=== PATIENT | female | born 1995 | race Caucasian/White ===

== ENCOUNTER 2017-01-04 23:01 | Emergency (ER) | payer OTHER ==
--- NOTE | 2017-01-05 01:55 | ED NURSING NOTES ---
Clinical Report - Nurses [facility] [address] [place] [address] 01/04/2017 23:01 Patient: CHALINO CZAARES TRIAGE Triage time 23:08. Acuity: LEVEL 4. Chief Complaint: LEFT UPPER TOOTHACHE. 23:13. Alert. SEPSIS SCREEN: Sepsis Screen. Negative (no infection suspected/documented). --23:13 Tyler Kurtz R.N. 23:08 01/04/17. BP: 130/92. HR: 94. RR: 19. O2 saturation: 100% on room air. Temp: 97.9 F. Pain level now: 04/19. --23:13 Tyler Kurtz R.N. Weight: 54.4 kg stated. Height/Length: 70 inches Per Patient. BMI: 17.2. --23:12 Tyler Kurtz R.N. Medications None. --23:12 Tyler Kurtz R.N. Medication/allergy information source: the patient. --23:13 Tyler Kurtz R.N. Allergies No Known Drug Allergy. --23:12 Tyler Kurtz R.N. History Arrived by private vehicle. Historian: patient. Accompanied by friend. Onset. (On and off for 2 months - bad for the last 2 days). She has no dental appointment scheduled. 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 PAST MEDICAL HX: Immunizations: up-to-date. Last normal menstrual period now. SOCIAL HX: Current every day heavy tobacco smoker- less than 1 pack per day. No alcohol use or drug use. No infectious disease exposure. ABUSE ASSESSMENT: No report of abuse. FALL RISK ASSESSMENT: Fall risk assessment completed. No fall risk identified. NUTRITIONAL RISK ASSESSMENT: The nutritional risk assessment revealed no deficiencies. FUNCTIONAL ASSESSMENT: Functional assessment: no impairments noted. LEARNING NEEDS ASSESSMENT: The learning needs assessment revealed no barriers. SKIN INTEGRITY ASSESSMENT: Skin integrity risk assessment completed. No skin integrity risk identified. --23:13 Tyler Kurtz R.N. PROBLEMS: no known problems. ADDITIONAL SURGERIES: no known surgeries. Interventions ID band on patient. To treatment room. --23:13 Tyler Kurtz R.N. PHYSICAL ASSESSMENT 23:14. Ambulatory to room. GENERAL / NEURO / PSYCH: Alert. Oriented X 4. Appears in pain. HEENT: Voice within normal limits. Mucous membranes are pink. SKIN: Skin is warm and dry. Normal skin turgor. --23:14 Tyler Kurtz R.N. NURSING PROGRESS NOTES 23:14. Head of bed elevated. Two patient identifiers checked. Call light placed in reach. Bed placed in lowest position. Brakes of bed on. Patient ready for evaluation- chart flagged. --23:14 Tyler Kurtz R.N. 01:51 Dr. Robertson with pt performing a dental block. --01:51 Tyler Kurtz R.N. 01:58 01/05/2017 Amoxicillin PO 500 mg given. Allergies verified and confirmed 5 rights. --02:03 Tyler Kurtz R.N. 02:02. The patient is calm and resting quietly. GENERAL / NEURO / PSYCH: Alert. Oriented X 4. RESPIRATORY: No respiratory distress. SKIN: Skin is warm and dry. --02:09 Tyler Kurtz R.N. DISPOSITION / DISCHARGE Departure time: 02:04. Condition at departure: stable. No learning barriers present. Discharge instructions provided and reviewed with the patient. Reviewed medication(s) side effects, precautions, dosing and course information. Prescription(s) given to the patient. Patient verbalized understanding. Written instructions provided in Latvian. The patient was discharged home and accompanied by pouako kura kaupapa maori. She left the Emergency Department ambulatory and via private vehicle. Top Carrier driving. FALL RISK ASSESSMENT: Fall risk assessment completed. No fall risk identified. --02:06 Tyler Kurtz R.N. 01:57 01/05/17. BP: 119/83. HR: 86. RR: 16. O2 saturation: 99%. Pain level now: 12/18. Additional comments: Pain improving . --02:06 Tyler Kurtz R.N. Locked/Released at 01/05/2017 2:09 by Tyler Kurtz R.N.
--- NOTE | 2017-01-05 01:55 | ED ORDER SUMMARY ---
..... Patient: CHALINO CAZARES OrderSheet Located Within [facility] VisitID: [id number] [address] [place] [address] 21y, F Registration Date/Time: 01/04/2017 ORDER SHEET Weight: 54.4 kg (stated) Allergies: No Known Drug Allergy GENERAL ORDERS: - (dental resouce list) (01:45 01/05/2017 Gabriel LAWS) (Ack 1:46 JQuivey R.N.) (1:52 JQuivey R.N.) MEDICATION ORDERS: Amoxicillin PO 500 mg (NOW) (01:44 01/05/2017 Gabriel LAWS) (Ack 1:45 JQuivey R.N.) (2:03 JQuivey R.N.) IV FLUIDS: ORDER SHEET NOTES: [Electronically signed by Tyler Kurtz R.N. (02:09 01/05/2017)] [Electronically signed by Isaac Root MD (12:32 01/07/2017)] [Electronically locked/signed by Tyler Kurtz R.N. (02:09 01/05/2017)]
--- NOTE | 2017-01-05 01:55 | ED ORDER SUMMARY ---
..... Patient: CHALINO CAZARES OrderSheet [facility] VisitID: [id number] [address] [place] [address] 21y, F Registration Date/Time: 01/04/2017 ORDER SHEET Weight: 54.4 kg (stated) Allergies: No Known Drug Allergy GENERAL ORDERS: - (dental resouce list) (01:45 01/05/2017 Gabriel LAWS) (Ack 1:46 JQuivey R.N.) (1:52 JQuivey R.N.) MEDICATION ORDERS: Amoxicillin PO 500 mg (NOW) (01:44 01/05/2017 Gabriel LAWS) (Ack 1:45 JQuivey R.N.) (2:03 JQuivey R.N.) IV FLUIDS: ORDER SHEET NOTES: [Electronically signed by Tyler Kurtz R.N. (02:09 01/05/2017)] [Electronically signed by Isaac Root MD (12:32 01/07/2017)] [Electronically locked/signed by Tyler Kurtz R.N. (02:09 01/05/2017)]
--- NOTE | 2017-01-05 01:55 | ED CLINICAL REPORT ---
Clinical Report - Physicians/Mid Levels [facility] [address] [place] [address] 01/04/2017 23:01 Patient: CHALINO CAZARES Time Seen: 01:44. Arrived- By private vehicle. Historian- patient. HISTORY OF PRESENT ILLNESS Chief Complaint: DENTAL PAIN. This started several days ago and is still present. It was gradual in onset and has been waxing/waning. Pain described as severe. No sore throat, mouth sores or swollen jaw or face. She has had toothache (entire mouth but worse in the R upper dental arch.). REVIEW OF SYSTEMS No fever, cough, difficulty breathing or chest pain. PAST HISTORY Negative. Problems: no known problems. Additional Surgeries: no known surgeries. Medications: None. Allergies: No Known Drug Allergy. SOCIAL HISTORY Current every day smoker. ADDITIONAL NOTES The nursing notes have been reviewed. PHYSICAL EXAM Vital Signs: 01/05/2017 01:57 BP: 119/83. HR: 86. RR: 16. O2 saturation: 99%. Pain level now: 6/10. 01/04/2017 23:08 BP: 130/92. HR: 94. RR: 19. O2 saturation: 100%. Temp: 97.9 F. Pain level now: 10/10. Appearance: Alert. No moderate distress. ENT: Dental tenderness (lower right third molar, lower left third molar) (diffuse tenderness). No pharyngeal erythema, mouth ulcerations or tonsillar exudate. Neck: Trachea midline. CVS: Heart sounds normal. Respiratory: No respiratory distress. PROGRESS AND PROCEDURES Dental Nerve Block: ( L posterior superior nerve block with fair re). Course of Care: 01:47 01/05/17. Disposition: Discharged. Condition: fair and improved. CLINICAL IMPRESSION Severe dental pain. INSTRUCTIONS (SEE DENTIST EMILY). Prescription Medications: Hydrocodone/APAP 5mg / 325mg: take 1-2 orally every 4 hours as needed for pain. Dispense twelve (12). No refill. Amoxicillin 500 mg tablets: Take 1 orally every 8 hours for 10 days. Dispense thirty (30). No refills. Understanding of the discharge instructions verbalized by patient. (Electronically signed by Isaac Root MD 01/07/2017 12:32)
--- NOTE | 2017-01-05 01:55 | ED CLINICAL REPORT ---
Clinical Report - Physicians/Mid Levels [facility] [address] [place] [address] 01/04/2017 23:01 Patient: CHALINO CAZARES Time Seen: 01:44. Arrived- By private vehicle. Historian- patient. HISTORY OF PRESENT ILLNESS Chief Complaint: DENTAL PAIN. This started several days ago and is still present. It was gradual in onset and has been waxing/waning. Pain described as severe. No sore throat, mouth sores or swollen jaw or face. She has had toothache (entire mouth but worse in the R upper dental arch.). REVIEW OF SYSTEMS No fever, cough, difficulty breathing or chest pain. PAST HISTORY Negative. Problems: no known problems. Additional Surgeries: no known surgeries. Medications: None. Allergies: No Known Drug Allergy. SOCIAL HISTORY Current every day smoker. ADDITIONAL NOTES The nursing notes have been reviewed. PHYSICAL EXAM Vital Signs: 01/05/2017 01:57 BP: 119/83. HR: 86. RR: 16. O2 saturation: 99%. Pain level now: 6/10. 01/04/2017 23:08 BP: 130/92. HR: 94. RR: 19. O2 saturation: 100%. Temp: 97.9 F. Pain level now: 10/10. Appearance: Alert. No moderate distress. ENT: Dental tenderness (lower right third molar, lower left third molar) (diffuse tenderness). No pharyngeal erythema, mouth ulcerations or tonsillar exudate. Neck: Trachea midline. CVS: Heart sounds normal. Respiratory: No respiratory distress. PROGRESS AND PROCEDURES Dental Nerve Block: ( L posterior superior nerve block with fair re). Course of Care: 01:47 01/05/17. Disposition: Discharged. Condition: fair and improved. CLINICAL IMPRESSION Severe dental pain. INSTRUCTIONS (SEE DENTIST EMILY). Prescription Medications: Hydrocodone/APAP 5mg / 325mg: take 1-2 orally every 4 hours as needed for pain. Dispense twelve (12). No refill. Amoxicillin 500 mg tablets: Take 1 orally every 8 hours for 10 days. Dispense thirty (30). No refills. Understanding of the discharge instructions verbalized by patient. (Electronically signed by Isaac Root MD 01/07/2017 12:32)
--- NOTE | 2017-01-05 01:55 | ED NURSING NOTES ---
Clinical Report - Nurses [facility] [address] [place] [address] 01/04/2017 23:01 Patient: CHALINO CAZARES TRIAGE Triage time 23:08. Acuity: LEVEL 4. Chief Complaint: LEFT UPPER TOOTHACHE. 23:13. Alert. SEPSIS SCREEN: Sepsis Screen. Negative (no infection suspected/documented). --23:13 Tyler Kurtz R.N. 23:08 01/04/17. BP: 130/92. HR: 94. RR: 19. O2 saturation: 100% on room air. Temp: 97.9 F. Pain level now: 04/19. --23:13 Tyler Kurtz R.N. Weight: 54.4 kg stated. Height/Length: 70 inches Per Patient. BMI: 17.2. --23:12 Tyler Kurtz R.N. Medications None. --23:12 Tyler Kurtz R.N. Medication/allergy information source: the patient. --23:13 Tyler Kurtz R.N. Allergies No Known Drug Allergy. --23:12 Tyler Kurtz R.N. History Arrived by private vehicle. Historian: patient. Accompanied by friend. Onset. (On and off for 2 months - bad for the last 2 days). She has no dental appointment scheduled. 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 PAST MEDICAL HX: Immunizations: up-to-date. Last normal menstrual period now. SOCIAL HX: Current every day heavy tobacco smoker- less than 1 pack per day. No alcohol use or drug use. No infectious disease exposure. ABUSE ASSESSMENT: No report of abuse. FALL RISK ASSESSMENT: Fall risk assessment completed. No fall risk identified. NUTRITIONAL RISK ASSESSMENT: The nutritional risk assessment revealed no deficiencies. FUNCTIONAL ASSESSMENT: Functional assessment: no impairments noted. LEARNING NEEDS ASSESSMENT: The learning needs assessment revealed no barriers. SKIN INTEGRITY ASSESSMENT: Skin integrity risk assessment completed. No skin integrity risk identified. --23:13 Tyler Kurtz R.N. PROBLEMS: no known problems. ADDITIONAL SURGERIES: no known surgeries. Interventions ID band on patient. To treatment room. --23:13 Tyler Kurtz R.N. PHYSICAL ASSESSMENT 23:14. Ambulatory to room. GENERAL / NEURO / PSYCH: Alert. Oriented X 4. Appears in pain. HEENT: Voice within normal limits. Mucous membranes are pink. SKIN: Skin is warm and dry. Normal skin turgor. --23:14 Tyler Kurtz R.N. NURSING PROGRESS NOTES 23:14. Head of bed elevated. Two patient identifiers checked. Call light placed in reach. Bed placed in lowest position. Brakes of bed on. Patient ready for evaluation- chart flagged. --23:14 Tyler Kurtz R.N. 01:51 Dr. Robertson with pt performing a dental block. --01:51 Tyler Kurtz R.N. 01:58 01/05/2017 Amoxicillin PO 500 mg given. Allergies verified and confirmed 5 rights. --02:03 Tyler Kurtz R.N. 02:02. The patient is calm and resting quietly. GENERAL / NEURO / PSYCH: Alert. Oriented X 4. RESPIRATORY: No respiratory distress. SKIN: Skin is warm and dry. --02:09 Tyler Kurtz R.N. DISPOSITION / DISCHARGE Departure time: 02:04. Condition at departure: stable. No learning barriers present. Discharge instructions provided and reviewed with the patient. Reviewed medication(s) side effects, precautions, dosing and course information. Prescription(s) given to the patient. Patient verbalized understanding. Written instructions provided in Georgian. The patient was discharged home and accompanied by waiter/waitress cabin class. She left the Emergency Department ambulatory and via private vehicle. Senior Mechanical Project Engineer driving. FALL RISK ASSESSMENT: Fall risk assessment completed. No fall risk identified. --02:06 Tyler Kurtz R.N. 01:57 01/05/17. BP: 119/83. HR: 86. RR: 16. O2 saturation: 99%. Pain level now: 12/18. Additional comments: Pain improving . --02:06 Tyler Kurtz R.N. Locked/Released at 01/05/2017 2:09 by Tyler Kurtz R.N.
--- NOTE | 2017-01-07 12:33 | ED DISCHARGE INSTRUCTIONS ---
Patient: CHALINO CAZARES General Instructions [facility] VisitID: [id number] [place] [address] 21y, F Registration Date/Time: 01/04/2017 Severe dental pain. INSTRUCTIONS (SEE DENTIST EMILY). Prescription Medications: Hydrocodone/APAP 5mg / 325mg: take 1-2 orally every 4 hours as needed for pain. Dispense twelve (12). No refill. Amoxicillin 500 mg tablets: Take 1 orally every 8 hours for 10 days. Dispense thirty (30). No refills. Understanding of the discharge instructions verbalized by patient. ADDITIONAL INFORMATION Dental Pain A crack or cavity in the tooth, which exposes the sensitive inner area of the tooth can cause tooth pain. An infection in the gum or the root of the tooth can cause pain and swelling. The pain is often made worse by drinking hot or cold fluids, or biting on hard foods. Pain may spread from the tooth to the ear or jaw on the same side. Home Care: Avoid hot and cold foods and liquids since your tooth may be sensitive to temperature changes. If your tooth is chipped or cracked, or if there is a large open cavity, apply OIL OF CLOVES (available giag-vcd-eaboeqk in drug stores) directly to the tooth to reduce pain. Some pharmacies carry an nhgl-ctr-wqczkle "toothache kit." This contains a paste, which can be applied over the exposed tooth to decrease sensitivity. A cold pack on your jaw over the sore area may help reduce pain. You may use acetaminophen (Tylenol) or ibuprofen (Motrin, Advil) to control pain, unless another medicine was prescribed. [ NOTE: If you have chronic liver or kidney disease or ever had a stomach ulcer or GI bleeding, talk with your doctor before using these medicines.] If you have signs of an infection, an antibiotic will be given. Take it as directed. Follow-Up as directed with a dentist. Your pain may go away with the treatment given. However, only a dentist can fully evaluate and treat the cause and prevent the pain from coming back again. TOOTHACHE IS A SIGN OF DISEASE IN YOUR TOOTH AND SHOULD BE EXAMINED AND TREATED BY A DENTIST. Get Prompt Medical Attention if any of the following occur: Your face becomes swollen or red Pain worsens or spreads to the neck Fever over 100.4 F (38.0 C) Unusual drowsiness; headache or stiff neck; weakness or fainting Pus drains from the tooth Difficulty swallowing or breathing Hydrocodone Bitartrate, Acetaminophen Oral tablet What is this medicine? ACETAMINOPHEN; HYDROCODONE (a set a LINA ginger fen; july droe KOE done) is a pain reliever. It is used to treat mild to moderate pain. How should I use this medicine? Take this medicine by mouth. Swallow it with a full glass of water. Follow the directions on the prescription label. If the medicine upsets your stomach, take the medicine with food or milk. Do not take more than you are told to take. Talk to your pharmacy graduate intern regarding the use of this medicine in children. This medicine is not approved for use in children. What side effects may I notice from receiving this medicine? Side effects that you should report to your doctor or health health care social worker as soon as possible: allergic reactions like skin rash, itching or hives, swelling of the face, lips, or tongue breathing problems confusion feeling faint or lightheaded, falls stomach pain yellowing of the eyes or skin Side effects that usually do not require medical attention (report to your doctor or health health care social worker if they continue or are bothersome): nausea, vomiting stomach upset What may interact with this medicine? alcohol antihistamines isoniazid medicines for depression, anxiety, or psychotic disturbances medicines for sleep muscle relaxants naltrexone narcotic medicines (opiates) for pain phenobarbital ritonavir tramadol What if I miss a dose? If you miss a dose, take it as soon as you can. If it is almost time for your next dose, take only that dose. Do not take double or extra doses. Where should I keep my medicine? Keep out of the reach of children. This medicine can be abused. Keep your medicine in a safe place to protect it from theft. Do not share this medicine with anyone. Selling or giving away this medicine is dangerous and against the law. Store at room temperature between 15 and 30 degrees C (59 and 86 degrees F). Protect from light. Keep container tightly closed. Throw away any unused medicine after the expiration date. Discard unused medicine and used packaging carefully. Pets and children can be harmed if they find used or lost packages. What should I tell my health care provider before I take this medicine? They need to know if you have any of these conditions: brain tumor Crohn's disease, inflammatory bowel disease, or ulcerative colitis drink more than 3 alcohol-containing drinks per day drug abuse or addiction head injury heart or circulation problems kidney disease or problems going to the bathroom liver disease lung disease, asthma, or breathing problems an unusual or allergic reaction to acetaminophen, hydrocodone, other opioid analgesics, other medicines, foods, dyes, or preservatives or trying to get breast-feeding What should I watch for while using this medicine? Tell your doctor or health health care social worker if your pain does not go away, if it gets worse, or if you have new or a different type of pain. You may develop tolerance to the medicine. Tolerance means that you will need a higher dose of the medicine for pain relief. Tolerance is normal and is expected if you take the medicine for a long time. Do not suddenly stop taking your medicine because you may develop a severe reaction. Your body becomes used to the medicine. This does NOT mean you are addicted. Addiction is a behavior related to getting and using a drug for a non-medical reason. If you have pain, you have a medical reason to take pain medicine. Your doctor will tell you how much medicine to take. If your doctor wants you to stop the medicine, the dose will be slowly lowered over time to avoid any side effects. You may get drowsy or dizzy when you first start taking the medicine or change doses. Do not drive, use machinery, or do anything that may be dangerous until you know how the medicine affects you. Stand or sit up slowly. There are different types of narcotic medicines (opiates) for pain. If you take more than one type at the same time, you may have more side effects. Give your health care provider a list of all medicines you use. Your doctor will tell you how much medicine to take. Do not take more medicine than directed. Call emergency for help if you have problems breathing. The medicine will cause constipation. Try to have a bowel movement at least every 2 to 3 days. If you do not have a bowel movement for 3 days, call your doctor or health health care social worker. Too much acetaminophen can be very dangerous. Do not take Tylenol (acetaminophen) or medicines that contain acetaminophen with this medicine. Many non-prescription medicines contain acetaminophen. Always read the labels carefully. You have been given the following additional information: Dental Pain Hydrocodone Bitartrate, Acetaminophen Oral tablet (Electronically signed by Isaac Root MD 01/07/2017 12:32)
--- NOTE | 2017-01-07 12:33 | ED MAR SUMMARY ---
..... Medication Administration Record [facility] [address] [place] [address] Patient: CHALNIO CAZARES Visit ID: [id number] 21y, F Weight: 54.4 kg Height/Length: 70 in BMI: 17.2 ALLERGIES: No Known Drug Allergy Given 01:58 01/05/2017 Tyler Kurtz RBalbinaNBalbina Medication Administered: AMOXICILLIN [PO], Dose: 500 mg PO. Medication Ordered: Amoxicillin PO 500 mg (NOW).
--- NOTE | 2017-01-07 12:33 | ED MED RECONCILIATION SUMMARY ---
Patient: CHALINO CAZARES Medication Reconciliation Report [facility] VisitID: [id number] [address] [place] [address] 21y, F Registration Date/Time: 01/04/2017 Weight: 54.4 kg Height/Length: 70 in. BMI: 17.2 ALLERGIES: No Known Drug Allergy The patient's Home Medications are listed below: NONE. The source(s) of the original Home Medication information: patient The following Medications were given to the patient in the Emergency Department: Amoxicillin [PO] PO 500 mg, administered: 01/05/2017 1:58:00 AM The following Medications were prescribed to the patient: Hydrocodone/APAP 5mg / 325mg: take 1-2 orally every 4 hours as needed for pain. Dispense twelve (12). No refill. -- Isaac Root MD Amoxicillin 500 mg tablets: Take 1 orally every 8 hours for 10 days. Dispense thirty (30). No refills. -- Isaac Root MD
--- NOTE | 2017-01-07 12:33 | ED MED RECONCILIATION SUMMARY ---
Patient: CHALINO CAZARES Medication Reconciliation Report [facility] VisitID: [id number] [address] [place] [address] 21y, F Registration Date/Time: 01/04/2017 Weight: 54.4 kg Height/Length: 70 in. BMI: 17.2 ALLERGIES: No Known Drug Allergy The patient's Home Medications are listed below: NONE. The source(s) of the original Home Medication information: patient The following Medications were given to the patient in the Emergency Department: Amoxicillin [PO] PO 500 mg, administered: 01/05/2017 1:58:00 AM The following Medications were prescribed to the patient: Hydrocodone/APAP 5mg / 325mg: take 1-2 orally every 4 hours as needed for pain. Dispense twelve (12). No refill. -- Isaac Root MD Amoxicillin 500 mg tablets: Take 1 orally every 8 hours for 10 days. Dispense thirty (30). No refills. -- Isaac Root MD
--- NOTE | 2017-01-07 12:33 | ED DISCHARGE INSTRUCTIONS ---
Patient: CHALINO CAZARES General Instructions [facility] VisitID: [id number] [place] [address] 21y, F Registration Date/Time: 01/04/2017 Severe dental pain. INSTRUCTIONS (SEE DENTIST EMILY). Prescription Medications: Hydrocodone/APAP 5mg / 325mg: take 1-2 orally every 4 hours as needed for pain. Dispense twelve (12). No refill. Amoxicillin 500 mg tablets: Take 1 orally every 8 hours for 10 days. Dispense thirty (30). No refills. Understanding of the discharge instructions verbalized by patient. ADDITIONAL INFORMATION Dental Pain A crack or cavity in the tooth, which exposes the sensitive inner area of the tooth can cause tooth pain. An infection in the gum or the root of the tooth can cause pain and swelling. The pain is often made worse by drinking hot or cold fluids, or biting on hard foods. Pain may spread from the tooth to the ear or jaw on the same side. Home Care: Avoid hot and cold foods and liquids since your tooth may be sensitive to temperature changes. If your tooth is chipped or cracked, or if there is a large open cavity, apply OIL OF CLOVES (available [id number] in drug stores) directly to the tooth to reduce pain. Some pharmacies carry an [id number] "toothache kit." This contains a paste, which can be applied over the exposed tooth to decrease sensitivity. A cold pack on your jaw over the sore area may help reduce pain. You may use acetaminophen (Tylenol) or ibuprofen (Motrin, Advil) to control pain, unless another medicine was prescribed. [ NOTE: If you have chronic liver or kidney disease or ever had a stomach ulcer or GI bleeding, talk with your doctor before using these medicines.] If you have signs of an infection, an antibiotic will be given. Take it as directed. Follow-Up as directed with a dentist. Your pain may go away with the treatment given. However, only a dentist can fully evaluate and treat the cause and prevent the pain from coming back again. TOOTHACHE IS A SIGN OF DISEASE IN YOUR TOOTH AND SHOULD BE EXAMINED AND TREATED BY A DENTIST. Get Prompt Medical Attention if any of the following occur: Your face becomes swollen or red Pain worsens or spreads to the neck Fever over 100.4 F (38.0 C) Unusual drowsiness; headache or stiff neck; weakness or fainting Pus drains from the tooth Difficulty swallowing or breathing Hydrocodone Bitartrate, Acetaminophen Oral tablet What is this medicine? ACETAMINOPHEN; HYDROCODONE (a set a LINA ginger fen; july droe KOE done) is a pain reliever. It is used to treat mild to moderate pain. How should I use this medicine? Take this medicine by mouth. Swallow it with a full glass of water. Follow the directions on the prescription label. If the medicine upsets your stomach, take the medicine with food or milk. Do not take more than you are told to take. Talk to your arts administrator regarding the use of this medicine in children. This medicine is not approved for use in children. What side effects may I notice from receiving this medicine? Side effects that you should report to your doctor or health medical care administrator as soon as possible: allergic reactions like skin rash, itching or hives, swelling of the face, lips, or tongue breathing problems confusion feeling faint or lightheaded, falls stomach pain yellowing of the eyes or skin Side effects that usually do not require medical attention (report to your doctor or health medical care administrator if they continue or are bothersome): nausea, vomiting stomach upset What may interact with this medicine? alcohol antihistamines isoniazid medicines for depression, anxiety, or psychotic disturbances medicines for sleep muscle relaxants naltrexone narcotic medicines (opiates) for pain phenobarbital ritonavir tramadol What if I miss a dose? If you miss a dose, take it as soon as you can. If it is almost time for your next dose, take only that dose. Do not take double or extra doses. Where should I keep my medicine? Keep out of the reach of children. This medicine can be abused. Keep your medicine in a safe place to protect it from theft. Do not share this medicine with anyone. Selling or giving away this medicine is dangerous and against the law. Store at room temperature between 15 and 30 degrees C (59 and 86 degrees F). Protect from light. Keep container tightly closed. Throw away any unused medicine after the expiration date. Discard unused medicine and used packaging carefully. Pets and children can be harmed if they find used or lost packages. What should I tell my health care provider before I take this medicine? They need to know if you have any of these conditions: brain tumor Crohn's disease, inflammatory bowel disease, or ulcerative colitis drink more than 3 alcohol-containing drinks per day drug abuse or addiction head injury heart or circulation problems kidney disease or problems going to the bathroom liver disease lung disease, asthma, or breathing problems an unusual or allergic reaction to acetaminophen, hydrocodone, other opioid analgesics, other medicines, foods, dyes, or preservatives or trying to get breast-feeding What should I watch for while using this medicine? Tell your doctor or health medical care administrator if your pain does not go away, if it gets worse, or if you have new or a different type of pain. You may develop tolerance to the medicine. Tolerance means that you will need a higher dose of the medicine for pain relief. Tolerance is normal and is expected if you take the medicine for a long time. Do not suddenly stop taking your medicine because you may develop a severe reaction. Your body becomes used to the medicine. This does NOT mean you are addicted. Addiction is a behavior related to getting and using a drug for a non-medical reason. If you have pain, you have a medical reason to take pain medicine. Your doctor will tell you how much medicine to take. If your doctor wants you to stop the medicine, the dose will be slowly lowered over time to avoid any side effects. You may get drowsy or dizzy when you first start taking the medicine or change doses. Do not drive, use machinery, or do anything that may be dangerous until you know how the medicine affects you. Stand or sit up slowly. There are different types of narcotic medicines (opiates) for pain. If you take more than one type at the same time, you may have more side effects. Give your health care provider a list of all medicines you use. Your doctor will tell you how much medicine to take. Do not take more medicine than directed. Call emergency for help if you have problems breathing. The medicine will cause constipation. Try to have a bowel movement at least every 2 to 3 days. If you do not have a bowel movement for 3 days, call your doctor or health medical care administrator. Too much acetaminophen can be very dangerous. Do not take Tylenol (acetaminophen) or medicines that contain acetaminophen with this medicine. Many non-prescription medicines contain acetaminophen. Always read the labels carefully. You have been given the following additional information: Dental Pain Hydrocodone Bitartrate, Acetaminophen Oral tablet (Electronically signed by Isaac Root MD 01/07/2017 12:32)
--- NOTE | 2017-01-07 12:33 | ED MAR SUMMARY ---
..... Medication Administration Record [facility] [address] [place] [address] Patient: CHALINO CAZARES Visit ID: [id number] 21y, F Weight: 54.4 kg Height/Length: 70 in BMI: 17.2 ALLERGIES: No Known Drug Allergy Given 01:58 01/05/2017 Tyler Kurtz RBalbinaNBalbina Medication Administered: AMOXICILLIN [PO], Dose: 500 mg PO. Medication Ordered: Amoxicillin PO 500 mg (NOW).
== END 2017-01-05 02:04 | disposition home or self-care (01) ==
LOC: ED SRH 23:01
DX: K08.89 Other specified disorders of teeth and supporting structures (principal); F17.210 Nicotine dependence, cigarettes, uncomplicated